=== PATIENT | female | born 1970 | race Caucasian/White ===

== ENCOUNTER → 2022-02-21 14:41 | Outpatient (CLI) | payer OTHER, SELFPAY ==
--- NOTE | 2022-02-21 | DI.MG.S_ITS ---
BILATERAL DIGITAL SCREENING MAMMOGRAM 3D/2D WITH CAD: 02/21/2022 CLINICAL: Routine screening. Family history of breast cancer. No prior exams were available for comparison. Both breasts are heterogeneously dense, which may obscure small masses (category c / 51-75% glandular tissue). Current study was also evaluated with a Computer Aided Detection (CAD) system. There is a possible equal density focal asymmetry in the right breast at 11 o'clock middle depth. No other significant masses, calcifications, or other findings are seen in either breast. IMPRESSION: INCOMPLETE: NEEDS ADDITIONAL IMAGING EVALUATION The possible equal density focal asymmetry in the right breast resembles fibroglandular tissue and is indeterminate. Additional views with possible ultrasound are recommended. Based on the Tyrer Cuzick model (a risk assessment model) the patient's lifetime risk is 14.1% and her 10 year risk is 3.5%. According to the ACR, ACS, and NCCN guidelines, an annual breast MRI exam along with mammogram is recommended if the patient's lifetime risk is 20% or greater. This exam was interpreted at Station ID: [id number]. NOTE: For mammograms, a report in lay terms will be sent to the patient. Approximately 15% of breast malignancies will not be visualized mammographically. In the management of a palpable breast mass, a negative mammogram must not discourage biopsy of a clinically suspicious lesion. Electronically Signed By: Jimi ferrer/jaya:02/21/2022 18:19:59 letter sent: Additional Imaging Needed ACR BI-RADS Category 0: Incomplete 3340F
== END ==
PROVIDERS: PCP Physician Assistant; Referring Provider Physician Assistant; Visit Provider Physician Assistant
DX: Z12.31 Encounter for screening mammogram for malignant neoplasm of breast (principal); Z80.3 Family history of malignant neoplasm of breast; N64.89 Other specified disorders of breast
CPT/HCPCS: 77063; 77067

== ENCOUNTER → 2022-03-30 08:42 | Outpatient (CLI) | payer OTHER, SELFPAY ==
--- NOTE | 2022-03-30 | DI.MG.S_ITS ---
UNILATERAL RIGHT DIGITAL DIAGNOSTIC MAMMOGRAM 3D/2D WITH ADDITIONAL VIEWS: 03/30/2022 CLINICAL: Additional evaluation requested from prior study. Comparison is made to exam dated: 02/21/2022 mammogram - [facility]. The right breast is heterogeneously dense, which may obscure small masses (category c / 51-75% glandular tissue). The previously seen focal asymmetry in the right breast disperses on spot compression views, compatible with normal fibroglandular breast tissue. No significant masses, calcifications, or other findings are seen in the breast. IMPRESSION: NEGATIVE There is no mammographic evidence of malignancy. Return to annual mammogram screening schedule is recommended. Based on the Tyrer Cuzick model (a risk assessment model) the patient's lifetime risk is 14.1% and her 10 year risk is 3.5%. According to the ACR, ACS, and NCCN guidelines, an annual breast MRI exam along with mammogram is recommended if the patient's lifetime risk is 20% or greater. This exam was interpreted at Station ID: [id number]. NOTE: For mammograms, a report in lay terms will be sent to the patient. Approximately 15% of breast malignancies will not be visualized mammographically. In the management of a palpable breast mass, a negative mammogram must not discourage biopsy of a clinically suspicious lesion. Electronically Signed By: Solitario garcia/jaya:03/30/2022 20:09:35 letter sent: Normal Exam ACR BI-RADS Category 1: Negative 3341F
== END ==
PROVIDERS: PCP Physician Assistant; Referring Provider Physician Assistant; Visit Provider Physician Assistant
DX: R92.8 Other abnormal and inconclusive findings on diagnostic imaging of breast (principal)
CPT/HCPCS: 77065; G0279

== ENCOUNTER → 2022-04-05 13:27 | Outpatient (CLI) | payer OTHER, SELFPAY ==
[2022-04-05 14:17] LABS: COVID19 -Nasal RAPID Negative (Negative)
== END ==
PROVIDERS: PCP Physician Assistant; Visit Provider Surgery
DX: Z20.822 Contact with and (suspected) exposure to COVID-19 (principal); Z01.812 Encounter for preprocedural laboratory examination
CPT/HCPCS: 87635; C9803

== ENCOUNTER → 2022-05-31 09:15 | Outpatient (CLI) | payer OTHER, SELFPAY ==
[2022-05-31 11:30] LABS: COVID19 -Nasal RAPID Negative (Negative)
== END ==
PROVIDERS: PCP Physician Assistant; Visit Provider Surgery
DX: Z20.822 Contact with and (suspected) exposure to COVID-19 (principal); Z01.812 Encounter for preprocedural laboratory examination
CPT/HCPCS: 87635; C9803

== ENCOUNTER 2022-06-01 08:45 | Day surgery (SDC) | payer OTHER, SELFPAY ==
[2022-06-01 09:02] VITALS: BP 114/78; PULSE 95; RESP 16; TEMP 37; O2SAT 97; BMI 22.1
[2022-06-01] MEDS: LACTATED RINGERS 1,000 ML 150 ML IV (09:22)
--- NOTE | 2022-06-01 10:12 | PM.HP.1 ---
History of Present Illness History of Present Illness Date Patient Seen: 06/01/22 Time Patient Seen: 10:14 Chief complaint: SDC Narrative: [place] is a 51-year-old woman who is here for colonoscopy today. She has no known family history of colon cancer. She has never had a colonoscopy before. She has never had anesthesia before. Patient History Family & Social History Social History: household members significant other Tobacco & Substance use: Smoking Status Never smoker alcohol intake current alcohol intake frequency holiday/special occasion Substance Use Type does not use Meds Home Medications and Allergies Home Medications Medication Instructions Recorded Confirmed Type sodium sul 1.479 gram-potas ch See Rx Instructions PO PER PKG DIR 05/17/22 Rx 0.188 gram-magnes sul 0.225 gram #24 tabs tablet (Sutab) Allergies Allergy/AdvReac Type Severity Reaction Status Date / Time aspirin Allergy Intermediate Verified 06/01/22 09:01 Exam Vital Signs (past 8 hours): - 06/01/22 09:02 Temperature 98.6 F Pulse Rate 95 H Respiratory Rate 16 Blood Pressure 114/78 Pulse Oximetry 97 Oxygen Delivery Method Room Air Oxygen Delivery Method Room Air Const General: healthy appearing Assessment & Plan Assessment and plan (1) Colon cancer screening: Status: Acute Plan We reviewed risks and benefits of colonoscopy and she would like to proceed. Time Spent With Patient Critical Care time: I spent a total of [] minutes of critical care time on this patient's care today; this time is exclusive of procedural time.
[2022-06-01 10:54] VITALS: BP 110/74; PULSE 93; RESP 16; TEMP 36.4; O2SAT 97
--- NOTE | 2022-06-01 10:55 | PM.OP.COLON ---
Operative Date/Time/Diagnoses Date of procedure: 06/01/22 Time of procedure: 10:55 Pre-op diagnosis: Colon cancer screening Post-op diagnosis: same Procedure & Clinicians Study performed: Colonoscopy Same procedure as scheduled: Yes Surgeon: Taj Estrella Procedure Notes Procedure in detail: Surgeon: Taj Estrella MD Anesthesia: Jaisel Hernandes D.O. Procedure: The patient was brought to the endoscopy suite, placed in left lateral decubitus position. The patient was connected to monitoring devices. A time-out was performed. Sedation was administered. Once the patient was adequately sedated, a digital rectal exam was performed and was normal. The scope was then inserted and advanced to the cecum where the appendiceal orifice was identified and photographed. The scope was then slowly withdrawn over greater than 6 minutes. The mucosa was thoroughly inspected. No abnormalities were seen. The scope was retroflexed in the rectum. No abnormalities were noted. The scope was straightened and removed. The patient was awakened and brought to recovery. Scope withdrawal time: 11 minutes Sedation time: 24 minutes EBL: 0 Findings: Normal colon Post-procedure Recommendations: Colonoscopy in 10 years Disposition: PACU
[2022-06-01 11:00] VITALS: BP 115/87; PULSE 96; RESP 18; O2SAT 99
[2022-06-01 11:05] VITALS: BP 120/80; PULSE 92; RESP 18; TEMP 36.6; O2SAT 99
[2022-06-01 11:10] VITALS: BP 121/76; PULSE 92; RESP 18; TEMP 36.6; O2SAT 99
== END 2022-06-01 11:25 | disposition home or self-care (01) ==
PROVIDERS: PCP Physician Assistant; Referring Provider Surgery; Visit Provider Surgery
PROC: 0DJD8ZZ Inspection of Lower Intestinal Tract, Via Natural or Artificial Opening Endoscopic (ICD-10-PCS; CPT 45378; principal; 2022-06-01 09:45)
DX: Z12.11 Encounter for screening for malignant neoplasm of colon (principal)
CPT/HCPCS: 45378; J2704; J3010

== ENCOUNTER → 2023-01-08 10:49 | Outpatient (CLI) | payer OTHER, SELFPAY ==
[2023-01-08 11:51] LABS: Add Manual Diff / Slide Review NO; Basophils Absolute Auto 100 /uL (0-100); Basophils Percent Auto 0.9 % (0-2); Eosinophils Absolute Auto 300 /uL (0-450); Eosinophils Percent Auto 2.5 % (2-4); Hematocrit 43.2 % (36-46); Hemoglobin 14.5 g/dL (12.0-16.0); Lymphocytes Absolute Auto 2800 /uL (1100-4500); Lymphocytes Percent Auto 25.2 % (25-40); Mean Corpuscular HGB Conc 33.5 % (30-36); Mean Corpuscular Volume 95.5 fL (80-100); Monocytes Absolute Auto 800 /uL (0-900); Monocytes Percent Auto 7.5 % (3-14); Neutrophils Absolute Auto 7200 /uL (1500-7000); Neutrophils Percent Auto 63.9 % (50-75); Platelet Count 365 X10^3/uL (150-400); Red Blood Cell Count 4.52 X10^6/uL (4.0-5.2); Red Cell Distribution Width 13.4 % (11.6-14.8); White Blood Cell Count 11.2 X10^3/uL (4.5-11.0)
[2023-01-08 12:13] LABS: Alanine Aminotransferase 20 IU/L (<35); Albumin 4.1 g/dL (3.5-5.0); Albumin Globulin Ratio 1.5 (1.0-2.8); Alkaline Phosphatase 52 U/L (38-126); Aspartate Aminotransferase 26 IU/L (14-36); BUN Creatinine Ratio 18.6 (6-22); Blood Urea Nitrogen 13 mg/dL (7-17); Calcium 8.9 mg/dL (8.4-10.2); Carbon Dioxide 27 mmol/L (22-32); Chloride 103 mmol/L (98-107); Cholesterol 200 mg/dL (140-199); Estimated Glomerular Filt Rate > 60 mL/min (>60); Globulin 2.7 g/dL (1.7-4.1); Glucose 90 mg/dL (70-100); HDL Cholesterol 74 mg/dL (40-60); HEMOLYSIS < 15 (0-50); LDL Cholesterol Calculated 110 mg/dL (<100); Potassium 3.9 mmol/L (3.4-5.1); Sodium 135 mmol/L (137-145); Total Protein 6.8 g/dL (6.3-8.2); Triglycerides 78 mg/dL (35-150)
[2023-01-08 12:32] LABS: Free T4, Direct Thyroxine 0.87 ng/dL (0.78-2.19)
[2023-01-08 12:45] LABS: Thyroid Stimulating Hormone 1.02 uIU/mL (0.47-4.68)
[2023-01-08 16:22] LABS: Creatinine Urine Random 43.5 mg/dL
[2023-01-08 16:30] LABS: Microalbumin Urine Random < 0.6 mg/dL (0-1.6)
[2023-01-08 17:29] LABS: HIV 1 & 2 Ab/Ag 4th Gen Combo NEGATIVE (NEGATIVE); Hep C Virus Ab w/Reflex Quant NEGATIVE s/c (NEGATIVE)
== END ==
PROVIDERS: PCP Physician Assistant; Referring Provider Nurse Practitioner; Visit Provider Nurse Practitioner
DX: Z00.00 Encounter for general adult medical examination without abnormal findings (principal); Z11.59 Encounter for screening for other viral diseases; Z11.4 Encounter for screening for human immunodeficiency virus [HIV]
CPT/HCPCS: 36415; 80053; 80061; 82043; 82570; 84439; 84443; 84481; 85025; 86803; 87389

== ENCOUNTER → 2023-03-24 08:21 | Outpatient (CLI) | payer OTHER, SELFPAY ==
--- NOTE | 2023-03-24 08:23 | DI.MG.S_ITS ---
BILATERAL DIGITAL SCREENING MAMMOGRAM 3D/2D WITH CAD: 03/24/2023 CLINICAL: Routine screening. Family history of breast cancer. Comparison is made to exams dated: 03/30/2022 mammogram and 02/21/2022 mammogram - [facility]. Both breasts are heterogeneously dense, which may obscure small masses (category c / 51-75% glandular tissue). Current study was also evaluated with a Computer Aided Detection (CAD) system. No significant masses, calcifications, or other findings are seen in either breast. There has been no significant interval change. IMPRESSION: NEGATIVE There is no mammographic evidence of malignancy. A 1 year screening mammogram is recommended. Based on the Tyrer Cuzick model (a risk assessment model) the patient's lifetime risk is 14.0% and her 10 year risk is 3.7%. According to the ACR, ACS, and NCCN guidelines, an annual breast MRI exam along with mammogram is recommended if the patient's lifetime risk is 20% or greater. This exam was interpreted at Station ID: [id number]. NOTE: For mammograms, a report in lay terms will be sent to the patient. Approximately 15% of breast malignancies will not be visualized mammographically. In the management of a palpable breast mass, a negative mammogram must not discourage biopsy of a clinically suspicious lesion. Electronically Signed By: Román daily/jaya:03/26/2023 09:49:39 letter sent: Normal Exam ACR BI-RADS Category 1: Negative 3341F
== END ==
PROVIDERS: PCP Nurse Practitioner; Referring Provider Nurse Practitioner; Visit Provider Nurse Practitioner
DX: Z00.00 Encounter for general adult medical examination without abnormal findings (principal); Z12.31 Encounter for screening mammogram for malignant neoplasm of breast; Z80.3 Family history of malignant neoplasm of breast
CPT/HCPCS: 77063; 77067

== ENCOUNTER → 2023-05-22 10:29 | Outpatient (CLI) | payer OTHER, SELFPAY ==
[2023-05-22 12:34] LABS: Add Manual Diff / Slide Review NO; Basophils Absolute Auto 100 /uL (0-100); Eosinophils Absolute Auto 400 /uL (0-450); Eosinophils Percent Auto 3.3 % (2-4); Hematocrit 40.2 % (36-46); Hemoglobin 13.6 g/dL (12.0-16.0); Lymphocytes Absolute Auto 2600 /uL (1100-4500); Lymphocytes Percent Auto 22.3 % (25-40); Mean Corpuscular HGB Conc 33.8 % (30-36); Mean Corpuscular Hemoglobin 32.1 PG (26-34); Mean Corpuscular Volume 94.9 fL (80-100); Monocytes Absolute Auto 800 /uL (0-900); Monocytes Percent Auto 6.7 % (3-14); Neutrophils Absolute Auto 7800 /uL (1500-7000); Neutrophils Percent Auto 66.7 % (50-75); Platelet Count 376 X10^3/uL (150-400); Red Blood Cell Count 4.23 X10^6/uL (4.0-5.2); Red Cell Distribution Width 12.9 % (11.6-14.8); White Blood Cell Count 11.6 X10^3/uL (4.5-11.0)
== END ==
PROVIDERS: PCP Nurse Practitioner; Referring Provider Nurse Practitioner; Visit Provider Nurse Practitioner
DX: D72.829 Elevated white blood cell count, unspecified (principal)
CPT/HCPCS: 36415; 85025

== ENCOUNTER → 2023-06-09 10:22 | Outpatient (CLI) | payer OTHER, SELFPAY ==
--- NOTE | 2023-06-09 10:34 | DI.RAD.S_ITS ---
PROCEDURE: XR CHEST 2V INDICATIONS: elevated WBCs TECHNIQUE: 2 views of the chest were acquired. COMPARISON: None. FINDINGS: Surgical changes and devices: None. Lungs and pleura: Lungs are clear. No pleural effusions or pneumothorax. Mediastinum: Mediastinal contours are normal. Heart size is normal. Bones and chest wall: No suspicious bony abnormalities. Soft tissues appear unremarkable. IMPRESSION: No acute cardiopulmonary abnormality is seen. Dictated by: Rina Early M.D. on 06/11/2023 at 0:57 Approved by: Rina Early M.D. on 06/11/2023 at 0:57
[2023-06-09 11:02] LABS: Appearance Urine UA CLEAR; Bilirubin Urine UA NEGATIVE (NEGATIVE); Color Urine UA YELLOW; Glucose Urine UA NEGATIVE (Negative); Ketones Urine UA NEGATIVE (NEGATIVE); Leukocyte Esterase Urine UA 1+ (NEGATIVE); Nitrite Urine UA NEGATIVE (Negative); Occult Blood Urine UA TRACE-INTACT (Negative); Protein Urine UA NEGATIVE (Negative); Urobilinogen Urine UA 0.2 E.U./dL (0.2)
[2023-06-09 12:20] LABS: Bacteria Urine None Seen; Culture Indicated Urine Cult Not Indicated; RBC Urine 0-1/HPF (0-5/HPF); Squamous Epithelial Cell Urine >30 /HPF (0-5/HPF); WBC Urine 5-10/HPF (0-5/HPF)
== END ==
LOC: LAB 10:24
PROVIDERS: PCP Nurse Practitioner; Referring Provider Nurse Practitioner; Visit Provider Nurse Practitioner
DX: D72.829 Elevated white blood cell count, unspecified (principal)
CPT/HCPCS: 71046; 81001

== ENCOUNTER → 2024-01-15 15:10 | Outpatient (CLI) | payer OTHER, SELFPAY ==
[2024-01-15 15:32] LABS: Add Manual Diff / Slide Review NO; Basophils Absolute Auto 100 /uL (0-100); Basophils Percent Auto 0.9 % (0-2); Eosinophils Absolute Auto 300 /uL (0-450); Hematocrit 40.6 % (36-46); Hemoglobin 13.9 g/dL (12.0-16.0); Lymphocytes Absolute Auto 3300 /uL (1100-4500); Lymphocytes Percent Auto 25.4 % (25-40); Mean Corpuscular HGB Conc 34.3 % (30-36); Mean Corpuscular Hemoglobin 33.2 PG (26-34); Mean Corpuscular Volume 96.8 fL (80-100); Monocytes Absolute Auto 1000 /uL (0-900); Monocytes Percent Auto 7.8 % (3-14); Neutrophils Absolute Auto 8200 /uL (1500-7000); Neutrophils Percent Auto 63.9 % (50-75); Platelet Count 345 X10^3/uL (150-400); Red Blood Cell Count 4.19 X10^6/uL (4.0-5.2); Red Cell Distribution Width 12.7 % (11.6-14.8); White Blood Cell Count 12.9 X10^3/uL (4.5-11.0)
[2024-01-15 15:37] LABS: Alanine Aminotransferase 15 IU/L (<35); Albumin 3.9 g/dL (3.5-5.0); Albumin Globulin Ratio 1.9 (1.0-2.8); Alkaline Phosphatase 40 U/L (38-126); Aspartate Aminotransferase 20 IU/L (14-36); BUN Creatinine Ratio 16.2 (6-22); Bilirubin Total 0.6 mg/dL (0.2-1.3); Blood Urea Nitrogen 11 mg/dL (7-17); Calcium 9.3 mg/dL (8.4-10.2); Carbon Dioxide 27 mmol/L (22-32); Chloride 107 mmol/L (98-107); Estimated Glomerular Filt Rate > 60 mL/min (>60); Globulin 2.1 g/dL (1.7-4.1); Glucose 85 mg/dL (70-100); HEMOLYSIS < 15 (0-50); Potassium 4.1 mmol/L (3.4-5.1); Sodium 138 mmol/L (137-145)
[2024-01-15 16:07] LABS: TSH w/ Reflex to FT4 1.94 uIU/mL (0.47-4.68)
== END ==
PROVIDERS: PCP Nurse Practitioner; Referring Provider Physician Assistant; Visit Provider Physician Assistant
DX: R00.0 Tachycardia, unspecified (principal)
CPT/HCPCS: 36415; 80053; 84443; 85025

== ENCOUNTER → 2024-01-23 15:09 | Outpatient (CLI) | payer BC, SELFPAY | LOC: CAR 15:10 | PROVIDERS: PCP Nurse Practitioner; Referring Provider Physician Assistant; Visit Provider Physician Assistant | DX: R00.0 Tachycardia, unspecified (principal) | CPT/HCPCS: 93242 ==

== ENCOUNTER → 2024-03-26 11:01 | Outpatient (CLI) | payer BC, SELFPAY ==
--- NOTE | 2024-03-26 | DI.MG.S_ITS ---
BILATERAL DIGITAL SCREENING MAMMOGRAM 3D/2D WITH CAD: 03/26/2024 CLINICAL: Routine screening. Family history of breast cancer. Comparison is made to exams dated: 03/24/2023 mammogram, 03/30/2022 mammogram, and 02/21/2022 mammogram - [facility]. The breasts are heterogeneously dense, which may obscure small masses (category c / 51-75% glandular tissue). Current study was also evaluated with a Computer Aided Detection (CAD) system. No significant masses, calcifications, or other findings are seen in either breast. There has been no significant interval change. IMPRESSION: NEGATIVE There is no mammographic evidence of malignancy. A 1 year screening mammogram is recommended. Based on the Tyrer Cuzick model (a risk assessment model) the patient's lifetime risk is 13.8% and her 10 year risk is 3.8%. According to the ACR, ACS, and NCCN guidelines, an annual breast MRI exam along with mammogram is recommended if the patient's lifetime risk is 20% or greater. This exam was interpreted at Station ID: [id number]. NOTE: For mammograms, a report in lay terms will be sent to the patient. Approximately 15% of breast malignancies will not be visualized mammographically. In the management of a palpable breast mass, a negative mammogram must not discourage biopsy of a clinically suspicious lesion. Electronically Signed By: Rina Early M.D., Ph.D. delfina/jaya:03/27/2024 17:23:23 letter sent: Normal Exam ACR BI-RADS Category 1: Negative
== END ==
LOC: MAMMO 11:02
PROVIDERS: PCP Family Medicine; Referring Provider Family Medicine; Visit Provider Nurse Practitioner
DX: Z12.31 Encounter for screening mammogram for malignant neoplasm of breast (principal); Z80.3 Family history of malignant neoplasm of breast; R92.333 Mammographic heterogeneous density, bilateral breasts
CPT/HCPCS: 77063; 77067

== ENCOUNTER → 2024-09-12 09:23 | Outpatient (CLI) | payer BC, SELFPAY ==
[2024-09-12 09:56] LABS: Add Manual Diff / Slide Review NO; Basophils Absolute Auto 100 /uL (0-100); Basophils Percent Auto 1.3 % (0-2); Eosinophils Absolute Auto 200 /uL (0-450); Hematocrit 43.2 % (36-46); Hemoglobin 14.3 g/dL (12.0-16.0); Lymphocytes Absolute Auto 2400 /uL (1100-4500); Lymphocytes Percent Auto 33.3 % (25-40); Mean Corpuscular HGB Conc 33.2 % (30-36); Mean Corpuscular Hemoglobin 31.8 PG (26-34); Mean Corpuscular Volume 95.7 fL (80-100); Monocytes Absolute Auto 600 /uL (0-900); Monocytes Percent Auto 8.3 % (3-14); Neutrophils Absolute Auto 3900 /uL (1500-7000); Neutrophils Percent Auto 54.1 % (50-75); Platelet Count 308 X10^3/uL (150-400); Red Blood Cell Count 4.51 X10^6/uL (4.0-5.2); White Blood Cell Count 7.2 X10^3/uL (4.5-11.0)
== END ==
PROVIDERS: PCP Family Medicine; Referring Provider Family Medicine; Visit Provider Family Medicine
DX: D72.829 Elevated white blood cell count, unspecified (principal); B00.9 Herpesviral infection, unspecified
CPT/HCPCS: 36415; 85025

== ENCOUNTER → 2025-02-28 09:54 | Outpatient (CLI) | payer BC, SELFPAY ==
[2025-02-28 11:34] LABS: Add Manual Diff / Slide Review NO; Hematocrit 41.1 % (36-46); Hemoglobin 14.0 g/dL (12.0-16.0); Lymphocytes Absolute Auto 2500 /uL (1100-4500); Mean Corpuscular HGB Conc 34.0 % (30-36); Mean Corpuscular Hemoglobin 32.1 PG (26-34); Mean Corpuscular Volume 94.6 fL (80-100); Platelet Count 329 X10^3/uL (150-400)
[2025-02-28 11:52] LABS: Alanine Aminotransferase 14 IU/L (<35); Albumin 3.7 g/dL (3.5-5.0); Albumin Globulin Ratio 1.5 (1.0-2.8); Alkaline Phosphatase 51 U/L (38-126); Blood Urea Nitrogen 16 mg/dL (7-17); Calcium 9.3 mg/dL (8.4-10.2); Carbon Dioxide 28 mmol/L (22-32); Chloride 104 mmol/L (98-107); Cholesterol 162 mg/dL (140-199); Estimated Glomerular Filt Rate > 60 mL/min (>60); Globulin 2.4 g/dL (1.7-4.1); Glucose 86 mg/dL (70-99); HDL Cholesterol 66 mg/dL (40-60); HEMOLYSIS < 15 (0-50); Potassium 4.1 mmol/L (3.4-5.1); Sodium 136 mmol/L (137-145); Total Protein 6.1 g/dL (6.3-8.2); Triglycerides 63 mg/dL (35-150)
[2025-02-28 15:25] LABS: Hep C Virus Ab w/Reflex Quant NEGATIVE s/c (NEGATIVE)
== END ==
PROVIDERS: PCP Family Medicine; Referring Provider Family Medicine; Visit Provider Family Medicine
DX: N93.9 Abnormal uterine and vaginal bleeding, unspecified (principal); E78.41 Elevated Lipoprotein(a)
CPT/HCPCS: 36415; 80053; 80061; 85025; 86803

== ENCOUNTER → 2025-04-07 12:00 | Outpatient (CLI) | payer BC, SELFPAY ==
--- NOTE | 2025-04-07 12:01 | DI.US.S_ITS ---
PROCEDURE: US PELVIC COMPLETE INDICATIONS: DUB TECHNIQUE: Real-time scanning was performed of the pelvic organs, with image documentation. Additional endovaginal scanning was necessary due to incomplete visualization of the adnexal and endometrial structures by transabdominal scanning. COMPARISON: None. FINDINGS: Uterus: 11 x 5.2 x 6.4 cm. Anteverted positioning. Endometrium measures 4 mm. Intramural mid posterior fibroid measures 3.1 x 2.7 cm. Ovaries: The right ovary is nonenlarged, measuring 6 mL. Small cysts are present measuring up to 2.1 cm. Significantly enlarged left ovary measuring 85 mL. Cyst is seen measuring 6.3 x 5.3 cm with internal septation Other: No pathologic free abdominal or pelvic fluid. IMPRESSION: Significantly enlarged left ovary with a septated cyst measuring 6.3 cm. Technically O-RADS 2 (bilocular). If no intervention is pursued, follow-up ultrasound suggested in 3-6 months. Alternatively, pelvic MRI can further evaluate. Small cysts also seen in the right ovary. Endometrium measures 4 mm, within limits for age. Intramural 3.1 cm uterine fibroid. Dictated by: Shalom Goodwin M.D. on 04/07/2025 at 12:42 Approved by: Shalom Goodwin M.D. on 04/07/2025 at 12:46
== END ==
LOC: US 12:01
PROVIDERS: PCP Family Medicine; Referring Provider Family Medicine; Visit Provider Family Medicine
DX: N93.9 Abnormal uterine and vaginal bleeding, unspecified (principal); D25.1 Intramural leiomyoma of uterus; N83.202 Unspecified ovarian cyst, left side; N83.201 Unspecified ovarian cyst, right side; N83.8 Other noninflammatory disorders of ovary, fallopian tube and broad ligament
CPT/HCPCS: 76830; 76856

== ENCOUNTER → 2025-04-09 13:11 | Outpatient (CLI) | payer BC, SELFPAY ==
[2025-04-09 15:05] LABS: Follicle Stimulating Hormone 6.64 mIU/mL; Progesterone, Total 0.59 ng/mL
== END ==
PROVIDERS: PCP Family Medicine; Referring Provider Physician Assistant; Visit Provider Physician Assistant
DX: N83.209 Unspecified ovarian cyst, unspecified side (principal); N93.9 Abnormal uterine and vaginal bleeding, unspecified
CPT/HCPCS: 36415; 82672; 83001; 84144; 86304

== ENCOUNTER 2025-05-21 07:46 | Day surgery (SDC) | payer BC, SELFPAY ==
[2025-05-15 10:23] VITALS: BMI 21.2
--- NOTE | 2025-05-21 | PATH_ITS ---
[facility] Accession Number: [id number] No. of containers..03 Tissue . 01 Material submitted: . PART A: fallopian tube - BILATERAL FALLOPIAN TUBES PART B: ovary - LEFT OVARIAN CYST WALL PART C: endometrium - ENDOMETRIAL CURETTINGS . 01 Diagnosis: A. BILATERAL FALLOPIAN TUBES, BILATERAL SALPINGECTOMY: Benign bilateral fallopian tubes. . B. LEFT OVARIAN CYST WALL, CYSTECTOMY: Benign serous cystadenofibroma. Negative for atypia or malignancy. . C. ENDOMETRIUM, CURETTINGS: Benign secretory phase endometrium. Negative for endometrioid intraepithelial neoplasia or malignancy. [facility] 05/26/2025 1536 Local . 01 Electronically signed: . Madina Barksdale MD, Pathologist NPI- [id number] . 01 Gross description: . A. Received in formalin with two patient identifiers and bilateral fallopian tubes, are bilateral undesignated fallopian tubes. The longer fallopian tube is 9.5 cm long by 0.5 cm in diameter. The shorter fallopian tube is 8 cm long by 0.6 cm in diameter. The serosa is purple-brown and cauterized. The cut surface is congested with pinpoint lumens. Resort [employer] sections are submitted as follows: A1: Longer fallopian tube with entire bisected fimbriated end. A2: [place] fallopian tube with entire bisected fimbriated end. B. Received in formalin with two patient identifiers and left ovarian cyst wall, is a 2.2 x 1.5 x 0.4 cm ragged and cauterized membranous tissue fragment grossly consistent with a disrupted cyst. The cut surface is red-simental and focally hemorrhagic. Excrescences are not grossly identified. Ovarian parenchyma is not grossly identified. Specimen entirely submitted in cassettes B1-B2. C. Received in formalin with two patient identifiers and endometrial curettings, is a 3.0 x 3.0 x 1.0 cm aggregate of red-brown, hemorrhagic tissue fragments. Entirely submitted in cassettes C1-C3. ([id number]) /NIKHIL 05/27/2025 1042 Local . 01 Pathologist provided ICD-10: N83.209, N93.9 . 01 CPT . 681253, 995325, 672251 Specimen Comment: A courtesy copy of this report has been sent to [facility] Pathology Performed at: [address] [facility] [id number] MD Kelvin Silveira MD Phone: [phone]
[2025-05-21 08:06] VITALS: BP 112/77; PULSE 83; RESP 16; TEMP 37.1; O2SAT 100
[2025-05-21] MEDS: SCOPOLAMINE 1 PATCH TOP (08:29)
[2025-05-21] MEDS: ACETAMINOPHEN IV 1,000 MG/100 ML VIAL 400 MG IV (08:30)
[2025-05-21] MEDS: LACTATED RINGERS 1,000 ML 42 ML IV ×2 (08:30→11:49)
--- NOTE | 2025-05-21 08:54 | PM.PREOP ---
Pre-operative Note Interval Note History & Physical reviewed/Exam performed by Physician: Yes Changes to H&P: No ASA Class (for procedural sedation): II
--- NOTE | 2025-05-21 09:11 | SUR.OPER ---
Lithotomy on padded OR bed. [place] Pad Positioner under torso. Head on pillow, arms padded and tucked at sides. Legs secured in padded yellow fins stirrups. Final positioning done by provider
[2025-05-21] MEDS: BUPivacaine 0.25% W/ EPI (PF) 30 ML VIAL INJ (10:21)
--- NOTE | 2025-05-21 11:07 | P.OP_ITS ---
Operative Date/Time/Diagnoses Date of procedure: 05/21/25 Time of procedure: 11:07 Pre-op diagnosis: L ovarian cyst, AUB, undesired future fertility Post-op diagnosis: same Procedure & Clinicians Procedure: diagnostic laparoscopy L ovarian cystectomy bilateral salpingectomy hysteroscopy with dilation and curettage Same procedure(s) as scheduled: Yes Indications: symptomatic L ovarian cyst heavy menstrual bleeding with cycle irregularity Surgeon: Julianna Soliz Assisted?: No Anesthesia Type: General Operative Notes Findings: intra-abdominal survey notable for normal appearing liver, stomach and appendix Enlarged L ovary with adherent 6cm cyst, serous contents, filmy adhesions of bowel epiploa to cyst wall R fallopian tube with multiple paratubal cysts, R ovary atrophic but otherwise n ormal in appearance hysteroscopy with noted synchetiae of R lateral side wall, no distinct polyp or fibroid, bilateral ostia visualized Closure Type: primary Specimen(s): other (1) bilateral fallopian tubes; 2) L ovarian cyst wall; 3) endometrial curettings ) Applied: none Estimated Blood Loss (mL): 5 Blood products transfused: none Procedure in detail: Pt was taken to the operating room, transferred to OR table and anesthesia was induced with placement of [ETT/LMA].? Pt had her legs placed in Anshu stirrups and an exam under anesthesia was performed. The patient was prepped and draped in a sterile fashion.? A time out was performed.? The bladder was emptied via straight catheter in sterile fashion.? The skin of infraumbilical region was superficially infiltrated with 5cc 0.25% bupivicaine with epinphrine for local analgesia. A 5mm incision was made infraumbilically and abdominal entry was achieved under direct visualization using the 5mm VisaPort trocar.? Abdomen was insufflated to 15mmHg.? Two R lateral 5-mm ports were placed in a similar manner under direct visualization.? The uterus was anteverted and abdominal survey was noted with findings as noted above. Using the atraumatic grasper the L fimbrae were grasped and used to elevate the ovary out of the pelvic cul-de-sac. The Powerseal was used to dissect the L fallopian tubes away from the mesosalpinx. The fallopian tube was amputated at the level of the cornua and removed en bloc via R lateral side port under direct visualization. The filmy adhesions of the bowel to L ovarian cyst were bluntly and sharply divided taking great care to avoid any iatrogenic injury to the bowel. The cyst was then further dissected without significant adhesions noted. The cyst was ruptured bluntly and serous contents were evacuated using suction irrigation. The cyst wall was then sharply excised using the power seal in combination with ligation. A portion of the cyst wall was brought out via the R lateral port under direct visualization and passed off the field for permanent study. Attention was then turned to the R fallopian tube wherein salpingectomy was performed in similar fashion and again all specimen was removed via lateral port under direct visualization. The pelvis was irrigated and suctioned. All wounds bed inspected and noted to be hemostatic. Insufflation was stopped and gas was allowed to escape via the trocars prior to removal. The skin of all incisions was closed using 4-0 monocryl in subcuticular fashion followed by application of dermabond. Attention was then turned to vaginal portion of the case. A sterile speculum was inserted into the vagina.? The cervix was visualized and grasped anteriorly using a single tooth tenaculum.? The uterus sounded to 7cm and the cervical os was serially dilated using Ibanez dilators up to 17f to allow for passage of the hysteroscope.? The 5mm 0degree hysteroscope was then inserted into the uterus with findings as noted.? The hysteroscope was removed and the uterus was sharply curetted until a gritty texture was noted throughout.? The tenaculum was removed and hemostasis was noted at insertion sites.? The speculum was removed and hemostasis was again noted to be excellent.? The patient then had her legs taken out of stirrups.? The patient tolerated the procedure well and without difficulty.? The patient was awakened from anesthesia and taken to PACU in stable condition. Complications: none Post-operative Condition: stable Disposition: PACU Plan for aftercare: anticipate dc to home pending postoperative course, routine f/u in office as scheduled
[2025-05-21 11:15] VITALS: BP 117/73; PULSE 75; RESP 15; TEMP 36.4; O2SAT 99
[2025-05-21 11:20] VITALS: BP 112/70; PULSE 63; RESP 12; O2SAT 99
[2025-05-21 11:28] VITALS: BP 112/70; PULSE 62; RESP 16; TEMP 36.2; O2SAT 98
[2025-05-21 11:42] VITALS: BP 112/70; PULSE 78; RESP 16; TEMP 36.2; O2SAT 98
[2025-05-21] MEDS: ONDANSETRON 4 MG/2 ML INJ IV (13:06)
--- NOTE | 2025-05-21 13:09 | SUR.PHASEII ---
Patient ambulating to bathroom to void but unsuccessful. Small amount of vaginal bleeding noted. Patient c/o slight nausea. Zofran given; warm blankets provided. Tolerating PO fluids without difficulty.
== END 2025-05-21 13:55 | disposition home or self-care (01) ==
PROVIDERS: PCP Family Medicine; Referring Provider Obstetrics & Gynecology; Visit Provider Obstetrics & Gynecology
PROC: (CPT 58662; principal; 2025-05-21 09:00)
PROC: 0UDB8ZZ Extraction of Endometrium, Via Natural or Artificial Opening Endoscopic (ICD-10-PCS; CPT 58558; 2025-05-21 09:00)
DX: N93.9 Abnormal uterine and vaginal bleeding, unspecified (principal); Z30.2 Encounter for sterilization; Z87.891 Personal history of nicotine dependence; D27.1 Benign neoplasm of left ovary
CPT/HCPCS: 58662; 58661; 58558; J0131; J1100; J1885; J2250; J2405; J2704; J3010; J7120